=== PATIENT | male | born 1930 | race Caucasian/White ===

== ENCOUNTER 2020-03-11 13:16 | Inpatient (IN) ==
[2020-03-11 15:34] LABS: Basophils % 0.1 % (0.0-0.8); Eosinophils # 0.1 10*3/uL (0.0-0.87); Eosinophils % 0.6 % (0.00-10.9); Hematocrit 30.2 VOL% (42.0-52.0); Hemoglobin 10.1 GM/DL (14.0-18.0); Immature Granulocytes % 0.4 %; Immature Granulocytes Absolute 0.04 #; Lymphocytes # 2.1 10*3/uL (1.4-4.0); Mean Corpuscular HGB Conc 33.4 GM/DL (32-36); Mean Platelet Volume 9.8 FL (9.6-12.0); Neutrophils % 61.9 % (38.7-73.9); Platelet Count 287 T/CUMM (130-400); Red Blood Count 2.96 MC/CUMM (3.8-5.5); Red Cell Distribution Width 12.5 % (9.3-17.3); White Blood Count 8.9 T/CUMM (4-12)
[2020-03-11 15:54] LABS: Partial Thromboplastin Time 28.5 SECS (23.9-33.8)
[2020-03-11 15:57] LABS: Albumin 2.9 G/DL (3.4-5.0); Bilirubin,Total 0.7 MG/DL (0.2-1.0); Calcium 8.9 MG/DL (8.5-10.1); Osmolality,Calculated 278.8 MOS/KG (273-304); Total Protein 6.5 G/DL (6.4-8.3)
[2020-03-11] MEDS ORDERED: PIPERACILLIN/TAZOBACTAM 3,375 MG in SODIUM CHLORIDE 0.9% 100 ML IV STA (16:27)
[2020-03-11] MEDS ORDERED: SODIUM CHLORIDE 0.9% 100 ML IV ONE (16:40)
[2020-03-11] MEDS ORDERED: PIPERACILLIN/TAZOBACTAM 3,375 MG VIAL IV ONE (16:40)
[2020-03-11] MEDS ORDERED: ACETAMINOPHEN 325 MG TABLET PO PRN (17:25)
[2020-03-11] MEDS ORDERED: GLUCAGON 1 MG VIAL IM PRN (17:25)
[2020-03-11] MEDS ORDERED: DEXTROSE 50% 25 GM/50 ML VIAL IV PRN (17:25)
[2020-03-11] MEDS ORDERED: ONDANSETRON 4 MG/2 ML VIAL IV PRN (17:25)
[2020-03-11] MEDS ORDERED: SODIUM CHLORIDE 0.9% 500 ML IV SCH (17:30)
[2020-03-11] MEDS ORDERED: DOXYCYCLINE HYCLATE INJ 100 MG in SODIUM CHLORIDE 0.9% 100 ML IV SCH (18:00)
[2020-03-11 20:06] LABS: Bilirubin,Urine Negative (Negative); Blood, Urine Negative (Negative); Glucose,Urine (UA) Negative (Negative); Hyaline Casts,Urine 7 /LPF (0-3); Ketones,Urine Negative (Negative); Mucus,Urine Occasional /LPF (Occasional); Nitrite,Urine Negative (Negative); Protein,Urine Negative; RBC,Urine <1 /HPF (0-4); Urine Appearance CLEAR (Clear); Urine Color Yellow (Yellow); Urine Specific Gravity 1.011 (1.001-1.035); Urine Urobilinogen < 2.0 EU/DL (0.2-1.0); WBC,Urine 1 /HPF (0-6)
[2020-03-11] MEDS ORDERED: ENOXAPARIN 30 MG/0.3 ML SYRINGE SUBCUT SCH (21:00)
[2020-03-12 06:07] LABS: Basophils % 0.1 % (0.0-0.8); Eosinophils # 0.1 10*3/uL (0.0-0.87); Eosinophils % 1.3 % (0.00-10.9); Hematocrit 28.1 VOL% (42.0-52.0); Hemoglobin 9.2 GM/DL (14.0-18.0); Immature Granulocytes % 0.5 %; Immature Granulocytes Absolute 0.04 #; Lymphocytes # 2.6 10*3/uL (1.4-4.0); Lymphocytes % 31.3 % (21.2-54.2); Mean Corpuscular HGB Conc 32.7 GM/DL (32-36); Mean Corpuscular Volume 102.2 FL (87-102); Neutrophils % 53.8 % (38.7-73.9); Platelet Count 258 T/CUMM (130-400); Red Blood Count 2.75 MC/CUMM (3.8-5.5); Red Cell Distribution Width 12.4 % (9.3-17.3); White Blood Count 8.2 T/CUMM (4-12)
[2020-03-12 06:25] LABS: Calcium 8.6 MG/DL (8.5-10.1); Osmolality,Calculated 282.5 MOS/KG (273-304); Risk Ratio 3.89; Thyroid Stimulating Hormone 0.626 uIU/ml (0.358-3.74); VLDL CHOLESTEROL 20.8 MG/DL
[2020-03-12 08:44] LABS: Anisocytosis 1+; Atypical Lymphocytes 1+; Band Neutrophils 2 % (0-10); Eosinophils 2 % (0-10); Lymphocytes 31 % (20-55); Platelet Estimate Normal; Segmented Neutrophils 55 % (50-85); Total Cells Counted 100
[2020-03-12 08:45] LABS: Macrocytosis Slight
[2020-03-12] MEDS ORDERED: DOXYCYCLINE HYCLATE INJ 100 MG in SODIUM CHLORIDE 0.9% 100 ML IV SCH (09:00)
[2020-03-12] MEDS ORDERED: PANTOPRAZOLE 40 MG TABLET PO SCH (09:00)
[2020-03-12 11:06] LABS: INR 1.1; PT Patient Result 11.5 SECS (9.8-11.9)
[2020-03-12 14:49] LABS: Total Protein,Body Fluid 3.6 G/DL
[2020-03-12 15:03] LABS: Albumin 2.5 G/DL (3.4-5.0)
[2020-03-12] MEDS: carvediloL 6.25 MG TABLET PO SCH (17:35)
[2020-03-12] MEDS: AZTREONAM 1,000 MG in SODIUM CHLORIDE 0.9% 100 ML IV SCH (17:35)
[2020-03-12] MEDS ORDERED: SIMVASTATIN 40 MG TABLET PO SCH (21:00)
[2020-03-13] MEDS: AZTREONAM 1,000 MG in SODIUM CHLORIDE 0.9% 100 ML IV SCH (01:15)
[2020-03-13 06:25] LABS: Basophils % 0.2 % (0.0-0.8); Eosinophils # 0.1 10*3/uL (0.0-0.87); Eosinophils % 1.5 % (0.00-10.9); Hematocrit 28.5 VOL% (42.0-52.0); Hemoglobin 9.2 GM/DL (14.0-18.0); Immature Granulocytes % 0.5 %; Immature Granulocytes Absolute 0.04 #; Lymphocytes # 2.7 10*3/uL (1.4-4.0); Lymphocytes % 33.6 % (21.2-54.2); Mean Corpuscular HGB Conc 32.3 GM/DL (32-36); Mean Corpuscular Volume 102.2 FL (87-102); Mean Platelet Volume 10.1 FL (9.6-12.0); Monocytes % 10.6 % (1.7-12.7); Neutrophils % 53.6 % (38.7-73.9); Platelet Count 285 T/CUMM (130-400); Red Blood Count 2.79 MC/CUMM (3.8-5.5); Red Cell Distribution Width 12.4 % (9.3-17.3); White Blood Count 8.1 T/CUMM (4-12)
[2020-03-13 06:32] LABS: Calcium 8.5 MG/DL (8.5-10.1); Osmolality,Calculated 284.4 MOS/KG (273-304)
[2020-03-13 07:36] VITALS: BP 93/60
[2020-03-13 07:47] LABS: Anisocytosis 1+; Burr Cells Few; Platelet Estimate Normal
[2020-03-13 07:48] LABS: Ovalocytes Few; Spherocytes Few
[2020-03-13] MEDS: carvediloL 6.25 MG TABLET PO SCH (08:35)
[2020-03-13] MEDS ORDERED: FLUTICASONE 50 MCG NASAL SPRAY 16 GM BOTTLE BOTH NARES SCH (09:00)
[2020-03-13] MEDS ORDERED: CALCIUM (CARBONATE) 600 MG TABLET PO SCH (09:00)
[2020-03-13] MEDS ORDERED: AMOXICILLIN/CLAV 500 MG TABLET PO SCH (09:00)
[2020-03-13] MEDS ORDERED: NEOMYC/POLYMYX/DEXAMETH OPH SUSP 5 ML BOTTLE BOTH EYES SCH (09:00)
[2020-03-13] MEDS ORDERED: FUROSEMIDE 20 MG/2 ML VIAL IV SCH (09:00)
== END 2020-03-13 11:37 | disposition home health service (06) | DRG 194 ==
LOC: N.ED 13:16 → N.EDINP 17:22 → N.5E 18:42
PROVIDERS: ADMIT Internal Medicine Geriatric Medicine; ATTEND Internal Medicine Geriatric Medicine

== ENCOUNTER 2020-03-19 15:21 | Observation (INO) ==
[2020-03-19 18:33] LABS: Basophils % 0.2 % (0.0-0.8); Eosinophils % 0.2 % (0.00-10.9); Hematocrit 31.1 VOL% (42.0-52.0); Hemoglobin 10.1 GM/DL (14.0-18.0); Immature Granulocytes % 1.3 %; Immature Granulocytes Absolute 0.12 #; Lymphocytes # 2.4 10*3/uL (1.4-4.0); Lymphocytes % 26.4 % (21.2-54.2); Mean Corpuscular HGB Conc 32.5 GM/DL (32-36); Mean Corpuscular Volume 100.3 FL (87-102); Mean Platelet Volume 9.1 FL (9.6-12.0); Neutrophils % 61.9 % (38.7-73.9); Platelet Count 367 T/CUMM (130-400); Red Cell Distribution Width 12.4 % (9.3-17.3); White Blood Count 9.2 T/CUMM (4-12)
[2020-03-19 18:57] LABS: Alanine Aminotransferase 30 U/L (16-61); Albumin 2.3 G/DL (3.4-5.0); Alkaline Phosphatase 94 U/L (45-117); Aspartate Amino Transferase 41 U/L (0-37); Bilirubin,Total < 0.39 MG/DL (0.2-1.0); Blood Urea Nitrogen 34 MG/DL (7-18); Calcium 8.9 MG/DL (8.5-10.1); Estimated Glom Filtration Rate 34 ML/MIN; Glucose 97 MG/DL (74-106); Osmolality,Calculated 284.5 MOS/KG (273-304); Total Protein 6.2 G/DL (6.4-8.3)
[2020-03-19 19:01] LABS: Band Neutrophils 1 % (0-10); Lymphocytes 26 % (20-55); Segmented Neutrophils 69 % (50-85); Total Cells Counted 100
[2020-03-19 19:10] LABS: Platelet Estimate Normal; Reactive Lymphocytes 2+
[2020-03-20] MEDS ORDERED: DEXTROSE 50% 25 GM/50 ML VIAL IV PRN (01:44)
[2020-03-20] MEDS ORDERED: GLUCAGON 1 MG VIAL IM PRN (01:44)
[2020-03-20] MEDS ORDERED: ONDANSETRON 4 MG/2 ML VIAL IV PRN (01:44)
[2020-03-20] MEDS ORDERED: SODIUM CHLORIDE 0.9% 1,000 ML IV SCH (02:00)
[2020-03-20] MEDS ORDERED: DEXTROSE 50% 25 GM/50 ML SYRINGE IV PRN (02:03)
[2020-03-20] MEDS ORDERED: MELATONIN 3 MG TABLET PO PRN (03:40)
[2020-03-20 04:20] LABS: Basophils % 0.1 % (0.0-0.8); Eosinophils % 0.3 % (0.00-10.9); Hematocrit 30.3 VOL% (42.0-52.0); Hemoglobin 10.1 GM/DL (14.0-18.0); Immature Granulocytes % 0.3 %; Immature Granulocytes Absolute 0.03 #; Lymphocytes # 2.7 10*3/uL (1.4-4.0); Lymphocytes % 29.9 % (21.2-54.2); Mean Corpuscular HGB Conc 33.3 GM/DL (32-36); Mean Corpuscular Volume 100.7 FL (87-102); Mean Platelet Volume 9.1 FL (9.6-12.0); Monocytes % 11.4 % (1.7-12.7); Platelet Count 353 T/CUMM (130-400); Red Blood Count 3.01 MC/CUMM (3.8-5.5); Red Cell Distribution Width 12.3 % (9.3-17.3); White Blood Count 8.9 T/CUMM (4-12)
[2020-03-20 04:52] LABS: Alanine Aminotransferase 27 U/L (16-61); Albumin 2.1 G/DL (3.4-5.0); Alkaline Phosphatase 81 U/L (45-117); Aspartate Amino Transferase 36 U/L (0-37); Bilirubin,Total < 0.39 MG/DL (0.2-1.0); Blood Urea Nitrogen 33 MG/DL (7-18); Calcium 8.8 MG/DL (8.5-10.1); Estimated Glom Filtration Rate 39 ML/MIN; Glucose 87 MG/DL (74-106); Osmolality,Calculated 284.4 MOS/KG (273-304); Total Protein 5.8 G/DL (6.4-8.3)
[2020-03-20 04:54] LABS: PT Patient Result 10.9 SECS (9.8-11.9)
[2020-03-20 04:59] LABS: Ferritin 366.4 ng/ml (26-388)
[2020-03-20 05:02] LABS: Lymphocytes 32 % (20-55); Segmented Neutrophils 62 % (50-85); Total Cells Counted 100
[2020-03-20 05:03] LABS: Atypical Lymphocytes Few
[2020-03-20 05:04] LABS: Hypochromasia 1+; Microcytosis 1+; Ovalocytes Slight; Platelet Estimate Adequate
[2020-03-20] MEDS: FAMOTIDINE 20 MG TABLET PO SCH ×2 (09:42→21:53)
[2020-03-20] MEDS: CHOLECALCIFEROL 1,000 UNIT TABLET PO SCH (09:42)
[2020-03-20] MEDS: ASCORBIC ACID 500 MG TABLET PO SCH ×2 (09:42→21:52)
[2020-03-20] MEDS: ZINC GLUCONATE 50 MG TABLET PO SCH (09:42)
[2020-03-20] MEDS: CETIRIZINE 10 MG TABLET PO SCH (09:43)
[2020-03-21] MEDS: ASCORBIC ACID 500 MG TABLET PO SCH ×2 (08:10→21:11)
[2020-03-21] MEDS: FAMOTIDINE 20 MG TABLET PO SCH ×2 (08:10→21:11)
[2020-03-21] MEDS: CHOLECALCIFEROL 1,000 UNIT TABLET PO SCH (08:11)
[2020-03-21] MEDS: CETIRIZINE 10 MG TABLET PO SCH (08:11)
[2020-03-21 09:55] LABS: Basophils % 0.1 % (0.0-0.8); Eosinophils # 0.1 10*3/uL (0.0-0.87); Eosinophils % 0.5 % (0.00-10.9); Hematocrit 34.5 VOL% (42.0-52.0); Hemoglobin 11.4 GM/DL (14.0-18.0); Immature Granulocytes % 0.2 %; Immature Granulocytes Absolute 0.02 #; Lymphocytes # 2.5 10*3/uL (1.4-4.0); Lymphocytes % 26.1 % (21.2-54.2); Mean Corpuscular Volume 100.6 FL (87-102); Mean Platelet Volume 9.4 FL (9.6-12.0); Neutrophils % 65.1 % (38.7-73.9); Platelet Count 365 T/CUMM (130-400); Red Blood Count 3.43 MC/CUMM (3.8-5.5); Red Cell Distribution Width 12.3 % (9.3-17.3); White Blood Count 9.5 T/CUMM (4-12)
[2020-03-21 10:15] LABS: Calcium 8.7 MG/DL (8.5-10.1); Osmolality,Calculated 275.8 MOS/KG (273-304)
[2020-03-21 10:17] LABS: Atypical Lymphocytes Few; Hypochromasia 1+; Lymphocytes 22 % (20-55); Platelet Estimate Adequate; Segmented Neutrophils 67 % (50-85); Total Cells Counted 100
[2020-03-21 10:18] LABS: Microcytosis 1+
[2020-03-21 15:02] LABS: Glucose,Pleural Fluid 102 MG/DL; LDH,Pleural Fluid 125 U/L
[2020-03-21 15:36] LABS: Lymphocytes,Pleural Fluid 92 %; Neutrophils,Pleural Fluid 8 %
[2020-03-21 15:44] LABS: RBC,Pleural Fluid 1538 T/CUMM
[2020-03-22 05:14] LABS: Basophils % 0.2 % (0.0-0.8); Eosinophils # 0.1 10*3/uL (0.0-0.87); Eosinophils % 0.6 % (0.00-10.9); Hematocrit 30.1 VOL% (42.0-52.0); Hemoglobin 9.9 GM/DL (14.0-18.0); Immature Granulocytes % 0.4 %; Immature Granulocytes Absolute 0.03 #; Lymphocytes # 3.4 10*3/uL (1.4-4.0); Lymphocytes % 41.3 % (21.2-54.2); Mean Corpuscular HGB Conc 32.9 GM/DL (32-36); Mean Platelet Volume 9.4 FL (9.6-12.0); Monocytes % 9.3 % (1.7-12.7); Neutrophils % 48.2 % (38.7-73.9); Platelet Count 328 T/CUMM (130-400); Red Blood Count 3.01 MC/CUMM (3.8-5.5); Red Cell Distribution Width 12.2 % (9.3-17.3); White Blood Count 8.3 T/CUMM (4-12)
[2020-03-22 05:42] LABS: Calcium 8.3 MG/DL (8.5-10.1); Osmolality,Calculated 278.5 MOS/KG (273-304)
[2020-03-22 05:54] LABS: Hypochromasia 1+; Microcytosis 1+; Platelet Estimate Adequate
[2020-03-22] MEDS: FAMOTIDINE 20 MG TABLET PO SCH (08:14)
[2020-03-22] MEDS: ASCORBIC ACID 500 MG TABLET PO SCH (08:15)
[2020-03-22] MEDS: ZINC GLUCONATE 50 MG TABLET PO SCH (08:15)
[2020-03-22] MEDS: CETIRIZINE 10 MG TABLET PO SCH (08:15)
[2020-03-22] MEDS: CHOLECALCIFEROL 1,000 UNIT TABLET PO SCH (08:15)
[2020-03-22 10:33] VITALS: BP 95/53
== END 2020-03-22 12:40 | disposition home or self-care (01) ==
LOC: N.EDINP 15:21 → N.ED 15:21 → SUATTDRO 03-20 00:58 → N.EDINP 03-20 13:57 → N.2E 03-20 14:27
PROVIDERS: ADMIT Family Medicine; ATTEND Internal Medicine
PROC: IRTHORA (2020-03-21 11:00)

== ENCOUNTER 2020-08-16 09:25 | Inpatient (IN) ==
[2020-08-16] MEDS ORDERED: ZALEPLON 5 MG CAPSULE PO PRN (12:00)
[2020-08-16] MEDS ORDERED: ONDANSETRON 4 MG/2 ML VIAL IV PRN (12:00)
[2020-08-16 13:25] LABS: Eosinophils # 0.2 10*3/uL (0.0-0.87); Eosinophils % 3.8 % (0.00-10.9); Hematocrit 27.9 VOL% (42.0-52.0); Hemoglobin 9.1 GM/DL (14.0-18.0); Immature Granulocytes % 0.8 %; Immature Granulocytes Absolute 0.05 #; Lymphocytes # 0.4 10*3/uL (1.4-4.0); Lymphocytes % 5.7 % (21.2-54.2); Mean Corpuscular HGB Conc 32.6 GM/DL (32-36); Mean Platelet Volume 10.4 FL (9.6-12.0); Monocytes % 16.7 % (1.7-12.7); Platelet Count 228 T/CUMM (130-400); Red Blood Count 2.79 MC/CUMM (3.8-5.5); Red Cell Distribution Width 15.6 % (9.3-17.3); White Blood Count 6.1 T/CUMM (4-12)
[2020-08-16 13:48] LABS: Calcium 8.7 MG/DL (8.5-10.1); Osmolality,Calculated 285.4 MOS/KG (273-304); Potassium 4.2 MMOL/L (3.5-5.1)
[2020-08-16] MEDS: ENOXAPARIN 40 MG/0.4 ML SYRINGE SUBCUT SCH (14:57)
[2020-08-16] MEDS: DEXTROSE 5% NACL 0.45% 1,000 ML IV SCH (15:04)
[2020-08-16 15:09] LABS: Hypochromasia 1+
[2020-08-16 15:10] LABS: Atypical Lymphocytes Few; Burr Cells Few; Macrocytosis Slight; Platelet Estimate Normal; Schistocytes Few
[2020-08-16 15:25] LABS: Band Neutrophils 3 % (0-10); Eosinophils 7 % (0-10); Total Cells Counted 100
[2020-08-16 15:26] LABS: Lymphocytes 7 % (20-55); Segmented Neutrophils 65 % (50-85)
[2020-08-16] MEDS: carvediloL 6.25 MG TABLET PO SCH (21:17)
[2020-08-17] MEDS: DEXTROSE 5% NACL 0.45% 1,000 ML IV SCH ×3 (04:00→22:30)
[2020-08-17 06:05] LABS: Basophils % 0.2 % (0.0-0.8); Eosinophils # 0.2 10*3/uL (0.0-0.87); Eosinophils % 4.1 % (0.00-10.9); Hematocrit 27.6 VOL% (42.0-52.0); Immature Granulocytes % 0.4 %; Immature Granulocytes Absolute 0.02 #; Lymphocytes # 0.6 10*3/uL (1.4-4.0); Lymphocytes % 10.7 % (21.2-54.2); Mean Corpuscular HGB Conc 32.6 GM/DL (32-36); Mean Platelet Volume 10.6 FL (9.6-12.0); Monocytes % 17.8 % (1.7-12.7); Neutrophils % 66.8 % (38.7-73.9); Platelet Count 237 T/CUMM (130-400); Red Blood Count 2.76 MC/CUMM (3.8-5.5); Red Cell Distribution Width 15.5 % (9.3-17.3); White Blood Count 5.6 T/CUMM (4-12)
[2020-08-17 06:12] LABS: PT Patient Result 10.8 SECS (10.5-12.0)
[2020-08-17 06:17] LABS: Calcium 8.6 MG/DL (8.5-10.1); Osmolality,Calculated 278.8 MOS/KG (273-304); Potassium 4.1 MMOL/L (3.5-5.1)
[2020-08-17 07:04] LABS: Anisocytosis 2+; Band Neutrophils 1 % (0-10); Eosinophils 5 % (0-10); Lymphocytes 11 % (20-55); Platelet Estimate Normal; Segmented Neutrophils 64 % (50-85); Total Cells Counted 100
[2020-08-17 07:05] LABS: Macrocytosis 1+
[2020-08-17] MEDS: PANTOPRAZOLE 40 MG TABLET PO SCH (08:32)
[2020-08-17] MEDS: SIMVASTATIN 40 MG TABLET PO SCH (08:32)
[2020-08-17] MEDS: carvediloL 6.25 MG TABLET PO SCH ×2 (08:32→21:40)
[2020-08-17] MEDS: NON-FORMULARY MEDICATION (Lutein 20 mg Capsule) PO SCH (08:39)
[2020-08-17] MEDS: allopurinoL 100 MG TABLET PO SCH (08:40)
[2020-08-17] MEDS: ENOXAPARIN 40 MG/0.4 ML SYRINGE SUBCUT SCH (15:32)
[2020-08-18] MEDS: DEXTROSE 5% NACL 0.45% 1,000 ML IV SCH ×2 (03:53→20:14)
[2020-08-18] MEDS: SIMVASTATIN 40 MG TABLET PO SCH (08:36)
[2020-08-18] MEDS: carvediloL 6.25 MG TABLET PO SCH ×2 (08:36→21:37)
[2020-08-18] MEDS: NON-FORMULARY MEDICATION (Lutein 20 mg Capsule) PO SCH (08:37)
[2020-08-18] MEDS: allopurinoL 100 MG TABLET PO SCH (08:41)
[2020-08-18] MEDS: PANTOPRAZOLE 40 MG TABLET PO SCH (08:42)
[2020-08-18] MEDS: ENOXAPARIN 40 MG/0.4 ML SYRINGE SUBCUT SCH (13:31)
[2020-08-19] MEDS: DEXTROSE 5% NACL 0.45% 1,000 ML IV SCH ×3 (07:36→21:11)
[2020-08-19] MEDS: SIMVASTATIN 40 MG TABLET PO SCH (08:47)
[2020-08-19] MEDS: carvediloL 6.25 MG TABLET PO SCH ×2 (08:47→20:58)
[2020-08-19] MEDS: allopurinoL 100 MG TABLET PO SCH (09:25)
[2020-08-19] MEDS: PANTOPRAZOLE 40 MG TABLET PO SCH (09:25)
[2020-08-19] MEDS: NON-FORMULARY MEDICATION (Lutein 20 mg Capsule) PO SCH (09:25)
[2020-08-19] MEDS: ENOXAPARIN 40 MG/0.4 ML SYRINGE SUBCUT SCH (14:46)
[2020-08-20] MEDS: carvediloL 6.25 MG TABLET PO SCH ×2 (08:47→20:29)
[2020-08-20] MEDS: SIMVASTATIN 40 MG TABLET PO SCH (08:48)
[2020-08-20] MEDS: allopurinoL 100 MG TABLET PO SCH (09:38)
[2020-08-20] MEDS: PANTOPRAZOLE 40 MG TABLET PO SCH (09:38)
[2020-08-20] MEDS: NON-FORMULARY MEDICATION (Lutein 20 mg Capsule) PO SCH (09:38)
[2020-08-20] MEDS: DEXTROSE 5% NACL 0.45% 1,000 ML IV SCH ×2 (10:25→22:24)
[2020-08-20] MEDS: ENOXAPARIN 40 MG/0.4 ML SYRINGE SUBCUT SCH (14:00)
[2020-08-21 05:10] LABS: Basophils % 0.4 % (0.0-0.8); Eosinophils # 0.3 10*3/uL (0.0-0.87); Eosinophils % 5.6 % (0.00-10.9); Hematocrit 26.6 VOL% (42.0-52.0); Hemoglobin 8.4 GM/DL (14.0-18.0); Immature Granulocytes % 0.2 %; Immature Granulocytes Absolute 0.01 #; Lymphocytes # 0.4 10*3/uL (1.4-4.0); Lymphocytes % 7.1 % (21.2-54.2); Mean Corpuscular HGB Conc 31.6 GM/DL (32-36); Mean Corpuscular Volume 101.5 FL (87-102); Mean Platelet Volume 10.4 FL (9.6-12.0); Monocytes % 17.9 % (1.7-12.7); Neutrophils % 68.8 % (38.7-73.9); Platelet Count 208 T/CUMM (130-400); Red Blood Count 2.62 MC/CUMM (3.8-5.5); Red Cell Distribution Width 15.4 % (9.3-17.3)
[2020-08-21 05:30] LABS: Calcium 8.6 MG/DL (8.5-10.1); Osmolality,Calculated 279.5 MOS/KG (273-304); Potassium 3.9 MMOL/L (3.5-5.1)
[2020-08-21 05:31] LABS: Band Neutrophils 2 % (0-10); Eosinophils 4 % (0-10); Hypochromasia 1+; Lymphocytes 8 % (20-55); Segmented Neutrophils 75 % (50-85); Total Cells Counted 100
[2020-08-21 05:32] LABS: Macrocytosis 1+; Ovalocytes Slight
[2020-08-21 05:33] LABS: Platelet Estimate Normal
[2020-08-21] MEDS: SIMVASTATIN 40 MG TABLET PO SCH (08:30)
[2020-08-21] MEDS: allopurinoL 100 MG TABLET PO SCH ×2 (08:30→08:33)
[2020-08-21] MEDS: carvediloL 6.25 MG TABLET PO SCH ×2 (08:30→20:49)
[2020-08-21] MEDS: PANTOPRAZOLE 40 MG TABLET PO SCH ×2 (08:30→08:33)
[2020-08-21] MEDS: NON-FORMULARY MEDICATION (Lutein 20 mg Capsule) PO SCH (08:30)
[2020-08-21] MEDS: DEXTROSE 5% NACL 0.45% 1,000 ML IV SCH (11:04)
[2020-08-21] MEDS: ENOXAPARIN 40 MG/0.4 ML SYRINGE SUBCUT SCH (14:18)
[2020-08-22] MEDS ORDERED: DOXYCYCLINE HYCLATE INJ 200 MG, LIDOCAINE 1% INJ 20 ML in STERILE WATER INJ 30 ML INTRAPLEUR ONE (07:30)
[2020-08-22] MEDS: allopurinoL 100 MG TABLET PO SCH (09:05)
[2020-08-22] MEDS: PANTOPRAZOLE 40 MG TABLET PO SCH (09:05)
[2020-08-22] MEDS: SIMVASTATIN 40 MG TABLET PO SCH (09:06)
[2020-08-22] MEDS: NON-FORMULARY MEDICATION (Lutein 20 mg Capsule) PO SCH (09:06)
[2020-08-22] MEDS: carvediloL 6.25 MG TABLET PO SCH ×2 (09:06→20:45)
[2020-08-22] MEDS: ENOXAPARIN 40 MG/0.4 ML SYRINGE SUBCUT SCH (14:14)
[2020-08-23 05:40] LABS: Basophils % 0.3 % (0.0-0.8); Eosinophils # 0.3 10*3/uL (0.0-0.87); Eosinophils % 4.5 % (0.00-10.9); Hematocrit 30.8 VOL% (42.0-52.0); Hemoglobin 9.8 GM/DL (14.0-18.0); Immature Granulocytes % 0.3 %; Immature Granulocytes Absolute 0.02 #; Lymphocytes # 0.4 10*3/uL (1.4-4.0); Lymphocytes % 6.6 % (21.2-54.2); Mean Corpuscular HGB Conc 31.8 GM/DL (32-36); Mean Platelet Volume 10.4 FL (9.6-12.0); Monocytes % 16.9 % (1.7-12.7); Neutrophils % 71.4 % (38.7-73.9); Platelet Count 216 T/CUMM (130-400); Red Blood Count 3.02 MC/CUMM (3.8-5.5); Red Cell Distribution Width 15.4 % (9.3-17.3); White Blood Count 5.7 T/CUMM (4-12)
[2020-08-23 05:54] LABS: Calcium 8.9 MG/DL (8.5-10.1); Osmolality,Calculated 287.1 MOS/KG (273-304); Potassium 3.8 MMOL/L (3.5-5.1)
[2020-08-23 06:17] LABS: Anisocytosis 1+; Band Neutrophils 5 % (0-10); Eosinophils 7 % (0-10); Lymphocytes 5 % (20-55); Macrocytosis 1+; Metamyelocytes 1 %; Platelet Estimate Normal; Segmented Neutrophils 63 % (50-85); Total Cells Counted 100
[2020-08-23] MEDS ORDERED: DOXYCYCLINE HYCLATE INJ 200 MG, LIDOCAINE 1% INJ 20 ML in STERILE WATER INJ 30 ML INTRAPLEUR ONE (07:30)
[2020-08-23] MEDS: PANTOPRAZOLE 40 MG TABLET PO SCH (08:51)
[2020-08-23] MEDS: NON-FORMULARY MEDICATION (Lutein 20 mg Capsule) PO SCH (08:51)
[2020-08-23] MEDS: allopurinoL 100 MG TABLET PO SCH (08:52)
[2020-08-23] MEDS: SIMVASTATIN 40 MG TABLET PO SCH (08:52)
[2020-08-23] MEDS: carvediloL 6.25 MG TABLET PO SCH ×2 (08:52→20:26)
[2020-08-23] MEDS: ENOXAPARIN 40 MG/0.4 ML SYRINGE SUBCUT SCH (13:56)
[2020-08-24 05:04] LABS: Basophils % 0.4 % (0.0-0.8); Eosinophils # 0.2 10*3/uL (0.0-0.87); Eosinophils % 3.7 % (0.00-10.9); Hematocrit 28.7 VOL% (42.0-52.0); Hemoglobin 9.1 GM/DL (14.0-18.0); Immature Granulocytes % 0.7 %; Immature Granulocytes Absolute 0.04 #; Lymphocytes # 0.4 10*3/uL (1.4-4.0); Lymphocytes % 7.4 % (21.2-54.2); Mean Corpuscular HGB Conc 31.7 GM/DL (32-36); Mean Corpuscular Volume 101.4 FL (87-102); Mean Platelet Volume 10.6 FL (9.6-12.0); Monocytes % 17.3 % (1.7-12.7); Neutrophils % 70.5 % (38.7-73.9); Platelet Count 187 T/CUMM (130-400); Red Blood Count 2.83 MC/CUMM (3.8-5.5); Red Cell Distribution Width 15.3 % (9.3-17.3); White Blood Count 5.4 T/CUMM (4-12)
[2020-08-24 05:29] LABS: Calcium 8.5 MG/DL (8.5-10.1); Osmolality,Calculated 285.3 MOS/KG (273-304); Potassium 3.9 MMOL/L (3.5-5.1)
[2020-08-24 05:47] LABS: Anisocytosis 1+; Band Neutrophils 3 % (0-10); Eosinophils 3 % (0-10); Lymphocytes 11 % (20-55); Segmented Neutrophils 68 % (50-85); Total Cells Counted 100
[2020-08-24 05:48] LABS: Ovalocytes Slight
[2020-08-24 07:49] VITALS: BP 100/57
[2020-08-24] MEDS: carvediloL 6.25 MG TABLET PO SCH (08:47)
[2020-08-24] MEDS: PANTOPRAZOLE 40 MG TABLET PO SCH (09:25)
[2020-08-24] MEDS: allopurinoL 100 MG TABLET PO SCH (09:25)
[2020-08-24] MEDS: NON-FORMULARY MEDICATION (Lutein 20 mg Capsule) PO SCH (09:25)
[2020-08-24] MEDS ORDERED: SIMVASTATIN 40 MG TABLET PO SCH (21:00)
== END 2020-08-24 10:54 | disposition home or self-care (01) | DRG 200 ==
LOC: N.ED 09:25 → N.EDINP 09:25 → SUATTDRO 11:47 → N.EDINP 13:38 → N.TELEN 13:52 → SUATTDRO 08-17 09:15
PROVIDERS: ADMIT Family Medicine; ATTEND Internal Medicine
PROC: IRGDHTC (2020-08-16 10:30)